=== PATIENT | male | born 1960 | race Caucasian/White ===

== ENCOUNTER 2020-10-04 11:49 | Day surgery (SDC) | payer BC ==
[~2020-10-04] VITALS: Ht 180.3 cm; Wt 71.2 kg
--- NOTE | 2020-10-04 12:19 | NUR ---
10/04/20 1219 Kimberly López 1 TRY RIGHT UPPER ARM BLEW
== END 2020-10-04 13:23 | disposition home or self-care (01) ==
LOC: ORSCSDS 11:49
PROVIDERS: Surgery
PROC: 0DJD8ZZ Inspection of Lower Intestinal Tract, Via Natural or Artificial Opening Endoscopic (ICD-10-PCS; principal; 2020-10-04 13:00)
DX: Z12.11 Encounter for screening for malignant neoplasm of colon (principal); F41.9 Anxiety disorder, unspecified; E78.00 Pure hypercholesterolemia, unspecified
CPT/HCPCS: J2704; J7120

== ENCOUNTER 2023-06-25 06:16 | Day surgery (SDC) | payer BC ==
[2023-06-25] VITALS (8 sets, daily range): BP systolic 104–120; BP diastolic 59–91
[~2023-06-25] VITALS: Ht 177.8 cm; Wt 70.9 kg
--- NOTE | 2023-06-25 09:20 | NUR ---
Dressing to procedure site clean, dry, intact with no visible drainage, swelling, erythema or bruising noted. Pt tolerated fluid and coffee. Pt denies pain at this time.
--- NOTE | 2023-06-25 09:42 | NUR ---
Discharge instructions reviewed with patient. Patient verbalizes understanding. Copy given to patient to take home. Dressing to procedure site clean, dry, intact with no visible drainage, swelling, erythema or bruising noted. Patient States Post-Procedure ride home has been arranged. Discharged via wheelchair to private car for ride home.
== END 2023-06-25 09:45 | disposition home or self-care (01) ==
LOC: ORSCMMR 06:16 → ORD 07:30 → ORSCMMR 07:30
PROVIDERS: Surgery
PROC: 0YU60JZ Supplement Left Inguinal Region with Synthetic Substitute, Open Approach (ICD-10-PCS; principal; 2023-06-25 07:30)
DX: K40.90 Unilateral inguinal hernia, without obstruction or gangrene, not specified as recurrent (principal)
CPT/HCPCS: C1781; J0690; J2250; J2405; J2704; J3010; J7120

== ENCOUNTER 2024-07-13 06:11 | Day surgery (SDC) | payer BC ==
[2024-07-13] VITALS (7 sets, daily range): BP systolic 116–128; BP diastolic 80–91
[~2024-07-13] VITALS: Ht 180.3 cm; Wt 70.8 kg
[~2024-07-13 06:11] MED LIST: B12-FOLIC ACID1 EACH; Dexamethasone Sod Phos 10 MG/ML 1ML VIAL ONE; ERGO400; FentaNYL Citrate 50 MCG/ML 5 ML Injection ONE; Hair, Skin & N1 EACH; MAGCHL64ER; Ondansetron HCl 2 MG / ML 2ML Vial ONE; Rocuronium Bromide 10 MG/ML 5ML Injection IV ONE; Vitamin C100 M1; ZINC15; propofoL 20 ML IV ONE
[2024-07-13] MEDS ORDERED: CeFAZolin Sodium 2,000 MG in NS 100 ML IV SCH (06:15)
[2024-07-13] MEDS ORDERED: Lactated Ringer's 1,000 ML IV SCH (06:15)
[2024-07-13] MEDS ORDERED: CeFAZolin Sodium 2,000 MG VIAL ONE (06:43)
--- NOTE | 2024-07-13 06:55 | NUR ---
Ambulatory in Day Surgery History, Chart, Medications and Allergies reviewed before start of procedure. Pre-Op teaching done. Pt verbalizes understanding. Patient States Post-Procedure ride home has been arranged.
[2024-07-13] MEDS ORDERED: propofoL 40 ML IV ONE ×2 (06:58→08:00)
[2024-07-13] MEDS ORDERED: Bupivacaine 0.5% HCl 5 MG/ML 30MLVIAL ONE ×2 (06:59→07:00)
[2024-07-13] MEDS ORDERED: FentaNYL Citrate 50 MCG/ML 2 ML Injection ONE (06:59)
[2024-07-13] MEDS ORDERED: EpiNEPhrine 1 MG/1 ML 1ML Vial ONE (07:00)
[2024-07-13] MEDS ORDERED: Lidocaine HCl 2% 20 ML MDV ONE (07:00)
[2024-07-13] MEDS ORDERED: Phenylephrine HCl 10mg/ml 1 ml Vial ONE (07:37)
--- NOTE | 2024-07-13 08:06 | NUR ---
07/13/24 0806 Bradley Costello 2 MESH USED DUE TO 1 PART OF THE FIRST MESH DROPPED
[2024-07-13] MEDS ORDERED: ePHEDrine Sulfate 50 MG/ML 1ML Injection ONE (08:09)
[2024-07-13] MEDS ORDERED: Sugammadex Sodium 200 MG/2ML SDV (100 MG/ML) ONE (08:16)
[2024-07-13] MEDS ORDERED: propofoL 20 ML IV ONE (08:44)
[2024-07-13] MEDS ORDERED: HYDROcodone 5-APAP 325 TAB PO PRN (09:05)
--- NOTE | 2024-07-13 09:25 | NUR ---
RECEIVED REPORT FROM LINA CONRAD. PT SHOWS NO SGIN OR SYMPTOM OF DISTTRESS AT TIME OF TRANSFER TOS TEP.
--- NOTE | 2024-07-13 09:47 | NUR ---
PT ABLE TO MAKE NEEDS KNOWN. STEVE PO, HAD ONE PAIN PILL. RECEIVED D/C INSTRUCTIONS. ABLE TO GET UP AND GET DRESSED WITHOUT DIFFICULTY.. ALL BELONINGS SENT HOME WITH, WHEEELCHAIR RIDE PROVIDED OUT TO RIDE HOME. DRESSING [facility].
== END 2024-07-13 22:56 | disposition home or self-care (01) ==
LOC: ORSCMMR 06:11 → ORD 07:30 → ORSCMMR 07:30
PROVIDERS: Surgery
PROC: 0YU50JZ Supplement Right Inguinal Region with Synthetic Substitute, Open Approach (ICD-10-PCS; principal; 2024-07-13 07:30)
DX: K40.90 Unilateral inguinal hernia, without obstruction or gangrene, not specified as recurrent (principal)
CPT/HCPCS: A9270; C1781; J0171; J0690; J1100; J2371; J2405; J2704; J3010; J7120